=== PATIENT | female | born 1975 | race Caucasian/White ===

== ENCOUNTER 2023-02-18 19:39 | Emergency (ER) | payer OTHER ==
[~2023-02-18] VITALS: Ht 162.6 cm; Wt 60.8 kg
[2023-02-18] MEDS ORDERED: SYNTHROID137 MCG PO (20:03)
== END 2023-02-18 22:09 | disposition home or self-care (01) ==
LOC: ER 19:39
DX: R21 Rash and other nonspecific skin eruption (principal); L50.9 Urticaria, unspecified